=== PATIENT | male | born 1955 | race Caucasian/White ===

== ENCOUNTER 2017-06-12 12:11 | Day surgery (SDC) | payer OTHER ==
[2017-06-12] MEDS ORDERED: PROPOFOL 40 ML (15:07)
== END 2017-06-12 16:40 | disposition home or self-care (01) ==
LOC: GIL 12:11
DX: Z12.11 Encounter for screening for malignant neoplasm of colon (principal); K64.8 Other hemorrhoids
CPT/HCPCS: 45378